=== PATIENT | female | born 1965 | race Caucasian/White ===

== ENCOUNTER 2024-06-11 05:48 | Emergency (ER) | payer OTHER ==
[~2024-06-11] VITALS: Ht 162.6 cm; Wt 75.0 kg
[2024-06-11 05:52] VITALS: O2SAT 100
[2024-06-11] MEDS ORDERED: TAMSULOSIN HCL 0.4MG SR CAPSULE PO STA (06:33)
[2024-06-11 06:48] LABS: BASOPHILS % 0.4 % (0.0-2.0); EOSINOPHILS % 0.9 % (0.0-5.0); HEMATOCRIT. 42.2 % (36.0-48.0); HEMOGLOBIN. 14.2 g/dL (12.0-16.0); LYMPHOCYTES % 18.6 % (20.0-50.0); MEAN CORPUSCULAR HEMOGLOBIN 30.1 pg (28.0-32.0); MEAN CORPUSCULAR HGB CONC 33.7 g/dL (31.0-37.0); MEAN CORPUSCULAR VOLUME 89.3 fL (81.0-99.0); MEAN PLATELET VOLUME 10.3 fl (7.4-10.4); MONOCYTES % 9.2 % (2.0-8.0); NEUTROPHILS % 70.9 % (40.0-76.0); PLATELET 237 x1000/uL (130-400); RED BLOOD CELL COUNT 4.72 mill/uL (4.2-5.4); RED CELL DISTRIBUTION WIDTH 13.7 % (11.6-14.6); WHITE BLOOD COUNT 10.3 x1000/uL (4.5-11.0)
[2024-06-11 07:31] VITALS: TEMP 98.9
[2024-06-11 07:37] LABS: CLARITY URINE CLEAR (CLEAR); COLOR URINE YELLOW (YELLOW); GLUCOSE URINE NEGATIVE (NEGATIVE); KETONES URINE NEGATIVE (NEGATIVE); LEUKOCYTE ESTERASE URINE NEGATIVE (NEGATIVE); NITRITE URINE NEGATIVE (NEGATIVE); OCCULT BLOOD URINE 3+ (NEGATIVE); PH URINE 5.5 (4.5-8.0); PROTEIN URINE NEGATIVE (NEGATIVE); SPECIFIC GRAVITY URINE 1.008 (1.005-1.030); UROBILINOGEN URINE 0.2 E.U./dL (0.2-1.0)
[2024-06-11 07:58] LABS: RBC URINE 15-25 /hpf (0-2); WBC URINE NONE SEEN /hpf (0-2)
[2024-06-11 07:59] LABS: BACTERIA URINE FEW; YEAST URINE NONE SEEN
[2024-06-11 08:00] LABS: SQUAMOUS EPITHELIAL CELL URINE NONE SEEN /lpf (RARE/1+)
[2024-06-11] MEDS ORDERED: TAMS-11 MT (08:14)
[2024-06-11 08:49] VITALS: BP 158/78; PULSE 52; RESP 14
== END 2024-06-11 08:59 | disposition home or self-care (01) ==
LOC: EDSEX → ER 05:48
DX: R33.9 Retention of urine, unspecified (principal); E11.9 Type 2 diabetes mellitus without complications
CPT/HCPCS: 80048; 81003; 85025; 36415; 51702; 99284; Z7610

== ENCOUNTER 2024-06-17 14:16 | Emergency (ER) | payer OTHER ==
[~2024-06-17] VITALS: Ht 172.7 cm; Wt 82.0 kg
[~2024-06-17 14:16] MED LIST: TAMS-11 MT
[2024-06-17 14:26] VITALS: O2SAT 100
[2024-06-17 16:08] LABS: CLARITY URINE CLEAR (CLEAR); COLOR URINE YELLOW (YELLOW); GLUCOSE URINE NEGATIVE (NEGATIVE); KETONES URINE NEGATIVE (NEGATIVE); LEUKOCYTE ESTERASE URINE TRACE (NEGATIVE); NITRITE URINE NEGATIVE (NEGATIVE); OCCULT BLOOD URINE 3+ (NEGATIVE); PROTEIN URINE 2+ (NEGATIVE); SPECIFIC GRAVITY URINE 1.018 (1.005-1.030)
[2024-06-17 16:52] LABS: BACTERIA URINE 1+; RBC URINE 50-100 /hpf (0-2); SQUAMOUS EPITHELIAL CELL URINE RARE /lpf (RARE/1+); WBC URINE 0-2 /hpf (0-2)
[2024-06-17 17:17] VITALS: BP 141/67; PULSE 72; RESP 18; TEMP 98.1
== END 2024-06-17 17:20 | disposition home or self-care (01) ==
LOC: ER 14:16 → EDSEX 14:16 → ER 17:20
DX: T83.098A Other mechanical complication of other urinary catheter, initial encounter (principal); E11.9 Type 2 diabetes mellitus without complications; X58.XXXA Exposure to other specified factors, initial encounter; Y93.89 Activity, other specified; Y92.89 Other specified places as the place of occurrence of the external cause; Y99.8 Other external cause status
CPT/HCPCS: 81003; 99283